=== PATIENT | female | born 1945 | race Caucasian/White ===

== ENCOUNTER 2016-07-17 18:53 | Emergency (ER) | payer MEDICARE ==
--- NOTE | 2016-07-17 19:09 | Emergency Department Record ---
History of Present Illness - General Chief Complaint: Fall Injury Stated Complaint: FALL RIGHT THUMB PAIN Time Seen by Provider: 07/17/16 19:04 Source: Patient Mode of Arrival: Ambulatory Limitations: No limitations - History of Present Illness Initial Comments: 70 yo female presents to ED following a [id number] injury with complaints of pain to the right thumb and to a lesser extent, the right elbow. Patient reports that her sandal caught on the ground resulting in her fall, denies injury to the head or neck. Patient denies numbness, tingling, or weakness to the extremities, denies back pain or injury, and is ambulating well without pain symptoms. 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: Yes, by family Place Fall Occurred: Other Loss of Consciousness: None Prolonged Down Time?: No Symptoms Prior to Fall: None Location - Extremities: Right: Elbow, Hand Severity: Moderate Quality: Aching - More[place] Coma Scale Eye Response: (4) Open spontaneously Motor Response: (6) Obeys commands Verbal Response: (5) Oriented [place] Total: 15 - Related Data Home Medications Medication Instructions Recorded Confirmed Last Taken Amitriptyline HCl 100 mg PO QHS 01/10/14 09/14/14 09/13/14 Bisacodyl [Dulcolax] 10 mg NH NOW 01/10/14 09/14/14 07/06/14 Clonazepam [Clonazepam] 0.5 mg PO QHS PRN 01/10/14 09/14/14 09/13/14 Cyclobenzaprine HCl [Flexeril] 10 mg PO TID 01/10/14 09/14/14 09/14/14 Ergocalciferol (Vitamin D2) 50,000 unit PO ASDIR 01/10/14 09/14/14 07/06/14 [Vitamin D2] Furosemide [Lasix] 20 mg PO ASDIR PRN 01/10/14 09/14/14 09/13/14 Gabapentin [Gabapentin] 300 mg PO BID 01/10/14 09/14/14 09/13/14 Gabapentin [Neurontin] 600 mg PO QHS 01/10/14 09/14/14 09/13/14 Hydroxychloroquine Sulfate 200 mg PO BID 01/10/14 09/14/14 09/14/14 [Plaquenil] Levothyroxine Sodium [Synthroid] 150 mcg PO DAILYTHY 01/10/14 09/14/14 07/06/14 Morphine Sulfate [Morphine Sulfate 60 mg PO BID 01/10/14 09/14/14 09/14/14 ER] Potassium Chloride [K-Tab ER] 10 meq PO ASDIR PRN 01/10/14 09/14/14 09/13/14 Pantoprazole Sodium [Protonix] 20 mg PO DAILY 09/14/14 09/14/14 09/14/14 Previous Rx's Medication Instructions Recorded Fexofenadine/Pseudoephedrine 1 each PO DAILY #30 tab.er.24h 01/10/14 [Lizabeth-D 24 Hour Tablet] Cephalexin [Keflex] 500 mg PO QID #40 cap 09/14/14 Allergies Allergy/AdvReac Type Severity Reaction Status Date / Time levofloxacin [LEVOFLOXACIN] Allergy Intermediate RASH Verified 09/14/14 16:42 Penicillins [PENICILLINS] Allergy Intermediate RASH Verified 09/14/14 16:42 Review of Systems Constitutional: Denies: Chills, Fever, Malaise, Night sweats Eyes: Denies: Eye discharge, Eye pain ENT: Denies: Congestion, Ear pain, Epistaxis Respiratory: Denies: Cough, Dyspnea Cardiovascular: Denies: Chest pain, Dyspnea on exertion Endocrine: Denies: Fatigue, Heat or cold intolerance Gastrointestinal: Denies: Abdominal pain, Nausea, Vomiting Genitourinary: Denies: Incontinence, Retention Musculoskeletal: Reports: Arthralgia. Denies: Back pain, Gout, Joint swelling Skin: Reports: Bruising. Denies: Change in color, Change in hair/nails Neurological: Denies: Abnormal gait, Confusion, Headache, Tingling Psychiatric: Denies: Anxiety Hematological/Lymphatic: Denies: Anemia, Blood Clots Past Medical History - SOCIAL HISTORY Smoking Status: Former smoker - RESPIRATORY Hx Respiratory Disorders: Yes Hx Bronchitis: Yes Hx COPD: Yes Hx Dyspnea: Yes (exertional) Hx Pneumonia: Yes (2012) - CARDIOVASCULAR Hx Cardio Disorders: Yes Hx Abnormal EKG: Yes Hx Cardiac Cath: Yes (11 yrs ago) Hx Edema: Yes (REBEKA LEGS) Hx Palpitations: Yes Comment:: heart cath was 11 years ago; no further treatment - NEURO Hx Neuro Disorders: Yes Hx Dizziness: Yes Hx Neuropathy: Yes (LEGS,FEET) Hx TIA: Yes (2005-no residual weakness) Hx Weakness: Yes (left leg; knee ; gives out alot) Comment:: "nerve damage in back"; "numbness & tingling in legs" - GI Hx GI Disorders: Yes Hx Reflux: Yes - Hx Genitourinary Disorders: Yes Hx Bladder Problem: Yes (bladder sling moved and "ruined bladder"/ pt self caths @ least 2x day) Hx Kidney Stones: Yes (hx of stones) Comment:: self cath prn @ least 2x day - ENDOCRINE Hx Endocrine Disorders: Yes Hx Thyroid Disease: Yes (cancerous thyroid-removed) Comment:: hx of LUPUS - MUSCULOSKELETAL Hx Musculoskeletal Disorders: Yes Hx Arthritis: Yes (hands/back/knees) Comment:: left leg 45% flexibility (3 knee sx) - PSYCH Hx Psych Problems: Yes Hx Anxiety: Yes Hx Depression: Yes - HEMATOLOGY/ONCOLOGY Hx Hematology/Oncology Disorders: Yes Hx Cancer: Yes (thyroid) Hx Chemotherapy: No Hx Radiation Therapy: Yes Hx Blood Transfusions: Yes Family Medical History Hx Cancer: Father, Mother Hx Dementia: Mother Hx Depression: Mother Hx Diabetes: Father, Mother Hx Heart Disease: Father Hx HTN: Father, Mother Physical Exam - General General Appearance: Alert, Oriented x3, Cooperative, Mild distress Limitations: No limitations - Head Head exam: Atraumatic, Normocephalic, Normal inspection Head exam detail: negative: Abrasion, Contusion, Lal's sign, General tenderness, Hematoma, Laceration - Eye Eye exam: Normal appearance. negative: Conjunctival injection, Periorbital swelling, Periorbital tenderness, Scleral icterus - ENT Ear exam: negative: Auricular hematoma, Auricular trauma Nasal Exam: negative: Active bleeding, Discharge, Dried blood, Foreign body, Sinus tenderness Mouth exam: negative: Drooling, Laceration, Muffled voice, Tongue elevation - Neck Neck exam: Normal inspection. negative: Meningismus, Tenderness - Respiratory Respiratory exam: Normal lung sounds bilaterally. negative: Respiratory distress, Rhonchi, Stridor, Wheezes - Cardiovascular Cardiovascular Exam: Regular rate, Normal rhythm, Normal heart sounds - GI/Abdominal GI/Abdominal exam: Soft. negative: Organomegaly, Rebound, Rigid, Tenderness - Rectal Rectal exam: Deferred - exam: Deferred - Extremities Extremities exam: Tenderness, Other (TTP over the base of the right thumb, no evidence for dislocation, no STS, ROM limited by pain. There is ecchmosis over the right elbow on examination, FROM of the elbow.). negative: Calf tenderness , Pedal edema - Back Back exam: Denies: CVA tenderness (R), CVA tenderness (L) - Neurological Neurological exam: Alert, Normal gait, Oriented X3 - Psychiatric Psychiatric exam: Normal affect, Normal mood - Skin Skin exam: Normal color. negative: Abrasion Type of lesion: negative: abrasion Course - Reevaluation(s) Reevaluation #1: 07/17/16 19:53 Right thumb: Degenerative changes, no acute fracture identified Right elbow: Degenerative changes, no acute fracture identified. Patient was updated on radiology results, reports increased ROM of the thumb on re-examination, and appears stable for discharge with instructions for symptomatic care alone. Patient appears stable for discharge at this time. Disposition Disposition: Discharge Clinical Impression: Contusion of right thumb Qualifiers: Encounter type: initial encounter Damage to nail status: without damage Qualified Code(s): S60.011A - Contusion of right thumb without damage to nail, initial encounter Disposition: Home, Self-Care Condition: (2) Stable Instructions: Contusion in Adults (ED) Additional Instructions: Return to ED if your symptoms worsen or if you have any concerns. Follow-up with your family doctor in 3-5 days as directed. Forms: Patient Portal Access Time of Disposition: 19:54
--- NOTE | 2016-07-19 09:52 | RADIOLOGY REPORT ---
EXAM: RIGHT ELBOW HISTORY: PATIENT FELL WITH PAIN IN THE RIGHT ELBOW. TECHNIQUE: Three views of the right elbow were obtained. Comparison: None. Encounter: Initial. FINDINGS: The right elbow appears intact with no definite fracture, dislocation , or joint effusion identified. Minor degenerative arthritis at the right elbow. IMPRESSION: 1. MINOR DEGENERATIVE ARTHRITIS. 2. NO DEFINITE FRACTURE OR JOINT EFFUSION EVIDENT AT THE RIGHT ELBOW. JOB NUMBER: [id number] MTDD
--- NOTE | 2016-07-19 09:55 | RADIOLOGY REPORT ---
EXAM: RIGHT THUMB HISTORY: PATIENT FELL WITH INJURY TO THE RIGHT THUMB. TECHNIQUE: Three views of the right thumb were obtained. Comparison: None. Encounter: Initial. FINDINGS: There appears to be advanced arthritic change at the first CMC articulation and probably some postop change in this region as well. Mild degenerative arthritis at the IP joint of the thumb and first MCP joint. No definite acute fracture or dislocation of the right thumb identified. IMPRESSION: 1. NO FRACTURE OF THE RIGHT THUMB IDENTIFIED. 2. DEGENERATIVE CHANGE INVOLVING THE RIGHT THUMB. POSTOP CHANGE NEAR THE FIRST CMC ARTICULATION WELL. JOB NUMBER: [id number] MTDD
== END 2016-07-17 20:02 | disposition home or self-care (01) ==
LOC: ER 18:53
DX: S60.011A Contusion of right thumb without damage to nail, initial encounter (principal); M25.521 Pain in right elbow; W01.0XXA Fall on same level from slipping, tripping and stumbling without subsequent striking against object, initial encounter
CPT/HCPCS: 99283

== ENCOUNTER 2018-05-30 09:10 | Day surgery (SDC) | payer MEDICARE ==
--- NOTE | 2018-05-30 06:42 | History and Physical - [place] ---
CHIEF COMPLAINT/HISTORY OF CHIEF COMPLAINT: This patient presents with a history of an intractable lumbar radiculopathy. A spinal cord stimulator trial was conducted and implanted initially in 2010, and it was revised in 2013. Although initially quite successful in controlling pain over time the system has essentially become nonfunctional. She is here for removal of generator and leads. PAST MEDICAL HISTORY: Chronic bladder infections and degenerative arthritis. PAST SURGICAL HISTORY: Hysterectomy, gallbladder surgery, renal surgery, thyroid surgery, bariatric surgery, stimulator implant, and pump implant. MEDICATIONS ON ADMISSION: List to be provided. ALLERGIES: None. SYSTEMS REVIEW: The patient seems appropriate in no acute distress. The remainder of the systems review is as per above. PHYSICAL EXAMINATION: Height is 5'3", weight is 200 pounds. No vital signs. HEENT: Within normal limits. LUNGS: Clear. HEART: Rapid and regular. ABDOMEN: Nontender. MUSCULOSKELETAL: Examination of the musculoskeletal system shows the incisional sites for the generator and spinal cord stimulator to be intact. There is no breakdown or cellulitis. The underlying pain pattern is low back and bilateral legs. NEUROLOGIC: Cranial nerves are intact. Mild motor and sensory abnormalities to the lower extremities bilaterally. IMPRESSION: 1. INTRACTABLE LUMBAR RADICULOPATHY, ICD-10 CODE M54.16 AND M54.17. 2. SPINAL CORD STIMULATOR AND INTERNAL GENERATOR NONFUNCTIONAL. PLAN: The patient is here for removal of a nonfunctional spinal cord stimulator system and internal generator. The incisions for the leads are located at the midline at T11-T12 and T12-L1 as well as the generator pouch at the right posterior gluteal margin. JOB NUMBER: [id number] MTDD
[~2018-05-30 09:10] MED LIST: ACETAMINOPHEN 1,000 MG/100 ML BTL IV ONE; FAMOTIDINE 20MG TABLET PO ONE; MECLIZINE 25 MG TABLET PO ONE; METOCLOPRAMIDE 10 MG TABLET PO ONE; VANCOMYCIN HCL 1,000 MG in DEXTROSE 5 % IN WATER 250 ML IVPB ONE
[2018-05-30] MEDS ORDERED: LIDOCAINE 1% W/EPI 1:200,000 MPF 30ML SQ ONE (09:11)
[2018-05-30] MEDS ORDERED: LIDOCAINE 2% MDV (20MG/ML) 20ML VIAL IV ONE (09:11)
[2018-05-30] MEDS ORDERED: MIDAZOLAM HCL 2MG/2ML VIAL IV ONE (09:11)
[2018-05-30] MEDS ORDERED: PROPOFOL 10 MG/ML VIAL IV ONE (09:11)
[2018-05-30] MEDS ORDERED: BUPIVACAINE 0.5% W/EPI MPF 30 ML VIAL IVP ONE (09:11)
[2018-05-30] MEDS ORDERED: Clindamycin 600mg vial 150 MG/ML VIAL IVPB ONE (09:11)
[2018-05-30] MEDS ORDERED: FENTANYL PF 100MCG/2ML VIAL IV ONE (09:11)
[2018-05-30] MEDS ORDERED: RINGERS SOLUTION,LACTATED 1,000 ML IV ONE (10:05)
[2018-05-30] MEDS ORDERED: LIDOCAINE 1% W/EPI 1:100,000 MDV 20 ML VIAL SQ ONE ×2 (11:24)
[2018-05-30] MEDS ORDERED: BUPIVACAINE 0.5% W/EPI MPF 30 ML VIAL SQ ONE ×2 (11:24)
[2018-05-30] MEDS ORDERED: RINGERS SOLUTION,LACTATED 500 ML IV ONE (12:11)
[2018-05-30] MEDS ORDERED: OXYCODONE/APAP 10MG-325MG TABLET PO ONE (12:36)
--- NOTE | 2018-05-31 11:30 | Operative Note ---
DATE OF SURGERY: 05/30/2018 PREOPERATIVE DIAGNOSES: 1. Intractable lumbar radiculopathy ICD-10 code implant 4.16 and implant 4.17. 2. Two-lead spinal cord stimulator internal generator nonfunctional. POSTOPERATIVE DIAGNOSES: 1. Intractable lumbar radiculopathy ICD-10 code implant 4.16 and implant 4.17. 2. Two-lead spinal cord stimulator internal generator nonfunctional. OPERATION: 1. Incision, sub dissection removal of internal pulse generator right posterior gluteal margin. 2. Incision, sub dissection removal of 2 spinal cord stimulators. 3. Removal of previous interface connector between generator and stimulators placed during revision. SURGEON: Markie Mac D.O. ANESTHESIA: Local anesthesia. ANESTHESIA PROVIDER: BRENNEN Roper CRNA INDICATION: This patient presents with a history of intractable lumbar radiculopathy. 2012 spinal cord stimulator was implanted, 2-tableau lead. This generator was revised with a positioning 2015, moving the generator up at that time, the interface connectors between the generator and the leads were kept in the original pouch recorder. The system is nonfunctional. She is here by her request for removal of the system. PROCEDURE: Intravenous line, vital sign monitoring, intravenous sedation by anesthesia provider BRENNEN. The patient was positioned prone, sterile prep, sterile technique. Under imaging, the generator of the right posterior gluteal margin was identified, skin infiltrated. Incision was made sub dissection was conducted to the pouch. The generator was then exteriorized. The interface connectors between the leads and the generator from the previous pouch were infiltrated. The skin infiltrated with local anesthetic, incision made and sub dissection was conducted to the previous pouch. The connectors were then removed intact. At the midline, T12-L1 skin infiltrated, incision made subcutaneous dissection was conducted to the 2-leads anchor. The loose sutures were removed, the anchors removed, and the 2 16 electrode leads were removed intact. The placement of these leads was intimately associated with a spinal catheter placement and anchor. The suture around the spinal catheter anchor had to be removed for the leads to be removed. Antibiotic irrigation and Bovie for hemostasis at all 3 incisional sites. The leads, connectors, and generator removed intact. Each of the 3 incisions was then closed using Stratafix 2-0 fascia, 3-0 skin. Dermabond closure over each of the 3 wounds. The spinal catheter had been re-anchored down to the deep fascia to assure appropriate anchoring. She was transported to the recovery room in stable and satisfactory condition from the procedure today. She will be monitored until stable and then prepared for discharge. DISCHARGE INSTRUCTIONS: 1. The sites remain clean and dry. Dermabond will allow showering, but no sitting in water or tubs. 2. Standard medications resumed. Because of allergies, the appropriate antibiotic was found, selected, and called to her pharmacy. 3. She will be contacted by the office at home, set up an appointment in the next 10 days to evaluate the sites. Until then, she is to keep her activities controlled. Limit bend, lift, push, and pull. 4. All other instructions provided, number to contact if problems given. She was then discharged. CC: Dr. Gal GUERRERO
== END 2018-05-30 12:53 | disposition home or self-care (01) ==
LOC: SUR 09:10
PROVIDERS: ATTEND Pain Medicine Interventional Pain Medicine
DX: M54.16 Radiculopathy, lumbar region (principal); M54.17 Radiculopathy, lumbosacral region; J44.9 Chronic obstructive pulmonary disease, unspecified; R06.00 Dyspnea, unspecified; M32.9 Systemic lupus erythematosus, unspecified; Z98.61 Coronary angioplasty status; M06.9 Rheumatoid arthritis, unspecified; Z86.73 Personal history of transient ischemic attack (TIA), and cerebral infarction without residual deficits; G25.81 Restless legs syndrome
CPT/HCPCS: 63661; 63688; 01936; J3370; J3010; J7060; J7120

== ENCOUNTER 2019-02-15 10:58 | Emergency (ER) | payer MEDICARE ==
--- NOTE | 2019-02-15 11:36 | Emergency Department Record ---
History of Present Illness - General Chief complaint: Extremity Problem Stated complaint: RIGHT ARM PAIN Time Seen by Provider: 02/15/19 11:09 Source: Patient Mode of Arrival: Ambulatory Limitations: No limitations - History of Present Illness Initial comments: pt moved furniture yesterday and now has pain in her r thoracic and shoulder area Complaint: Extremity pain, Other Onset/Timin -: Days(s) Location: Right, Arm History of Same: No Radiation: Proximal Severity scale (1-10): 8 Quality: Aching Consistency: Constant Improves with: Nothing Worsens with: Exertion, Weight bearing Associated Symptoms: Denies other symptoms - Related Data Home Medications Medication Instructions Recorded Confirmed Last Taken Oxycodone HCl/Acetaminophen 1 tab PO Q6H PRN 02/15/19 02/15/19 Unknown [Percocet 10mg/325mg] Ropinirole HCl [Requip] 0.5 mg PO QHS 02/15/19 02/15/19 Unknown Previous Rx's Medication Instructions Recorded Ibuprofen [Motrin 400Mg] 400 mg PO Q6H PRN #20 tablet 02/15/19 Allergies Allergy/AdvReac Type Severity Reaction Status Date / Time levofloxacin [LEVOFLOXACIN] Allergy Intermediate RASH Verified 09/14/14 16:42 Penicillins [PENICILLINS] Allergy Intermediate RASH Verified 09/14/14 16:42 Travel Screening - Travel/Exposure Within Last 30 Days Have you traveled within the last 30 days?: No Review of Systems Reviewed: No additional complaints except as noted below Constitutional: Reports: As per HPI. Denies: Chills, Fever, Malaise, Night sweats, Weakness, Weight change Eyes: Reports: As per HPI. Denies: Eye discharge, Eye pain, Photophobia, Vision change ENT: Reports: As per HPI. Denies: Congestion, Dental pain, Ear pain, Epistaxis, Hearing loss, Throat pain Respiratory: Reports: As per HPI. Denies: Cough, Dyspnea, Hemoptysis, Stridor, Wheezes Cardiovascular: Reports: As per HPI. Denies: Arrhythmia, Chest pain, Dyspnea on exertion, Edema, Murmurs, Orthopnea, Palpitations, Paroxysmal nocturnal dyspnea, Rheumatic Fever, Syncope Endocrine: Reports: As per HPI. Denies: Fatigue, Heat or cold intolerance, Polydipsia, Polyuria Gastrointestinal: Reports: As per HPI. Denies: Abdominal pain, Constipation, D iarrhea, Hematemesis, Hematochezia, Melena, Nausea, Vomiting Genitourinary: Reports: As per HPI. Denies: Abnormal menses, Discharge, Dyspareunia, Dysuria, Frequency, Hematuria, Incontinence, Retention, Urgency Musculoskeletal: Reports: As per HPI. Denies: Arthralgia, Back pain, Gout, Joint swelling, Myalgia, Neck pain Skin: Reports: As per HPI. Denies: Bruising, Change in color, Change in hair/nails, Lesions, Pruritus, Rash Neurological: Reports: As per HPI. Denies: Abnormal gait, Confusion, Headache, Numbness, Paresthesias, Seizure, Tingling, Tremors, Vertigo, Weakness Psychiatric: Reports: As per HPI. Denies: Anxiety, Auditory hallucinations, Depression, Homicidal thoughts, Suicidal thoughts, Visual hallucinations Hematological/Lymphatic: Reports: As per HPI. Denies: Anemia, Blood Clots, Easy bleeding, Easy bruising, Swollen glands Past Medical History - SOCIAL HISTORY Smoking Status: Former smoker - RESPIRATORY Hx Respiratory Disorders: Yes Hx Bronchitis: Yes (not recent) Hx COPD: Yes Hx Dyspnea: Yes (exertional) Hx Pneumonia: Yes (2012) - CARDIOVASCULAR Hx Cardio Disorders: Yes Hx Abnormal EKG: Yes Hx Cardiac Cath: Yes (11 yrs ago) Hx Deep Vein Thrombosis: No Hx Edema: Yes (left leg-on Lasix 2xd) Hx Palpitations: No Comment:: heart cath was 11 years ago; no further treatment - NEURO Hx Neuro Disorders: Yes Hx Dementia: Yes Hx Dizziness: Yes (head spins sometimes-balance issues) Hx Neuropathy: Yes (LEGS,FEET) Hx TIA: Yes (2004-no residual weakness) Hx Weakness: Yes (left leg; knee ; gives out alot) Comment:: "nerve damage in back"; "numbness & tingling in legs" - GI Hx GI Disorders: Yes Hx Reflux: Yes Hx Wt Loss/Wt Gain: Yes (wt loss from 179 1 week ago) Comment:: lactose intolerant - Hx Genitourinary Disorders: Yes Hx Bladder Problem: Yes (bladder sling moved and "ruined bladder"/ pt self caths @ least 2x day) Hx Kidney Stones: Yes (hx of stones) Comment:: self caths up to 7 x day - ENDOCRINE Hx Endocrine Disorders: Yes Hx Thyroid Disease: Yes (cancerous thyroid-removed) Comment:: hx of LUPUS - MUSCULOSKELETAL Hx Musculoskeletal Disorders: Yes Hx Arthritis: Yes (hands/back/knees) Hx Back Injury: Yes (fallen "not too long ago"-Dr Mac helped with injections) Comment:: left leg 45% flexibility (3 knee sx) - PSYCH Hx Psych Problems: Yes Hx Anxiety: Yes (anxiety attacks) Hx Depression: Yes - HEMATOLOGY/ONCOLOGY Hx Hematology/Oncology Disorders: Yes Hx Anemia: Yes (gets infusion Rx periodically) Hx Cancer: Yes (thyroid) Hx Chemotherapy: No Hx Radiation Therapy: Yes Hx Blood Transfusions: Yes Family Medical History Any Significant Family History?: Yes Hx Cancer: Father, Mother Hx Dementia: Mother Hx Depression: Mother Hx Diabetes: Father, Mother Hx Heart Disease: Father Hx HTN: Father, Mother Physical Exam - General General Appearance: Alert, Oriented x3, Cooperative, Mild distress - Head Head exam: Normal inspection - Eye Eye exam: Normal appearance, PERRL, EOMI Pupils: Normal accommodation - ENT ENT exam: Normal exam, Mucous membranes moist, Normal external ear exam, Normal orophraynx Ear exam: Normal external inspection. negative: External canal tenderness Nasal Exam: Normal inspection. negative: Discharge, Sinus tenderness Mouth exam: Normal external inspection, Tongue normal Teeth exam: Normal inspection. negative: Dental caries Throat exam: Normal inspection. negative: Tonsillar erythema, Tonsillar exudate - Neck Neck exam: Normal inspection, Full ROM. negative: Tenderness - Respiratory Respiratory exam: Normal lung sounds bilaterally. negative: Respiratory distress - Cardiovascular Cardiovascular Exam: Regular rate, Normal rhythm, Normal heart sounds - GI/Abdominal GI/Abdominal exam: Soft, Normal bowel sounds. negative: Tenderness - Rectal Rectal exam: Deferred - exam: Deferred - Extremities Extremities exam: Normal inspection, Full ROM, Normal capillary refill. negative: Tenderness - Back Back exam: Reports: Full ROM, Muscle spasm, Tenderness. Denies: Rash noted Image of Body Front/Back: 1 - reproducible tenderness - Neurological Neurological exam: Alert, CN II-XII intact, Normal gait, Oriented X3 - Psychiatric Psychiatric exam: Normal affect, Normal mood - Skin Skin exam: Dry, Intact, Normal color, Warm Course Vital Signs 02/15/19 11:06 Temperature 97.8 F Pulse Rate 89 Respiratory 20 Rate Blood Pressure 124/78 Pulse Ox 100 - Reevaluation(s) Reevaluation #1: 02/15/19 13:31 xrays are neg for acute findings Medical Decision Making - Lab Data Result diagrams: 02/15/19 11:35 02/15/19 11:35 Disposition Disposition: Discharge Clinical Impression: Acute thoracic myofascial strain Qualifiers: Encounter type: initial encounter Qualified Code(s): S29.019A - Strain of muscle and tendon of unspecified wall of thorax, initial encounter Disposition: Home, Self-Care Condition: (1) Good Instructions: Thoracic Back Strain (ED) Additional Instructions: follow up with family doctor this week. return sooner if worse. apply ice to sore area rotating with moist heat Prescriptions: Ibuprofen [Motrin 400Mg] 400 mg PO Q6H PRN #20 tablet PRN Reason: Pain - Mod To Severe (5-10) Forms: Patient Portal Access Quality - Quality Measures Quality Measures: N/A - Blood Pressure Screening Does Patient Have Any of the Following: No Blood Pressure Classification: Pre-Hypertensive BP Reading Systolic Measurement: 124 Diastolic Measurement: 78 Screening for High Blood Pressure: < Pre-Hypertensive BP, F/U Documented > [G8950] Pre-Hypertensive Follow-up Interventions: Follow-up with rescreen every year.
[2019-02-15 11:40] LABS: BASO % 0.6 % (0-6); EOS % 5.2 % (0-6); GRAN % 69.5 % (47-80); HEMATOCRIT 32.6 % (35.0-47.0); HEMOGLOBIN 9.5 gm/dl (11.6-16.0); LYMPH % 15.7 % (16-45); MEAN CELL VOLUME 98.8 fl (81-97); MEAN CORPUSCULAR HGB CONC 29.1 g/dl (32-36); PLATELET COUNT 112 K/uL (130-400); RED CELL DISTRIBUTION WIDTH 13.9 % (11.5-14.5); WHITE BLOOD COUNT W/O DIFF 3.5 K/uL (4.2-12.2)
[2019-02-15 11:43] LABS: MEAN CORPUSCULAR HEMOGLOBIN 28.7 pg (27-33)
[2019-02-15 11:50] LABS: BLOOD UREA NITROGEN 16 mg/dL (8-23); CREATININE 0.7 mg/dL (0.5-0.9); EST GLOMERULAR FILTRATION RATE > 60 mL/min
[2019-02-15 11:53] LABS: GLUCOSE,RANDOM 130 mg/dL (74-109)
[2019-02-15] MEDS ORDERED: KETOROLAC 30 MG/ML VIAL IM ONE (12:14)
--- NOTE | 2019-02-15 12:44 | RADIOLOGY REPORT ---
EXAMINATION: CERVICAL SPINE AP LATERAL, THORACIC SPINE EXAM DATE: 02/15/2019 12:20 PM TECHNIQUE: AP, lateral odontoid and swimmer's views of the cervical spine. AP, lateral and swimmer's views of the thoracic spine. INDICATION: Pain COMPARISON: Thoracolumbar radiographs 11/04 2015, CT chest 08/18/2011. ENCOUNTER: Initial FINDINGS: In the lateral projection, the cervical spine is seen from craniocervical junction to the C7-T1 level . Mild levoconvex curvature of the thoracocervical junction mild dextroconvex curvature of the lumbos acral junction. Cervical lordosis and facet alignment are preserved. Mild grade 1 anterolisthesis of C7 over T1. Base of the dens is intact. Lateral masses of C1 and C2 are well aligned. Mildly accelera leida thoracic kyphosis. Cervical and thoracic vertebral body heights are preserved. No convincing cervical or thoracic spine fracture to the limits of technique and osseous demineraliza tion. No prevertebral soft tissue swelling. Moderate degenerative changes at C4-C5, C5-C6 and C6-C7. Flowing ventral endplate osteophytes in the midthoracic spine. Advanced degenerative changes at L1-L2. IMPRESSION: No convincing cervical or thoracic spine fracture to the limits of technique and osseous demineraliza tion. Dictated by: Alyx Gregory MD on 02/15/2019 12:38 PM. .
--- NOTE | 2019-02-15 13:03 | RADIOLOGY REPORT ---
EXAMINATION: Right Shoulder, Complete Minimum Two Views EXAM DATE: 02/15/2019 12:20 PM TECHNIQUE: AP, Grashey, and axillary INDICATION: Right shoulder pain COMPARISON: None ENCOUNTER: Initial FINDINGS: Moderate diffuse osteopenia. No fracture or dislocation. IMPRESSION: Diffuse osteopenia. Dictated by: Benedicto Hooper DO on 02/15/2019 1:00 PM. .
== END 2019-02-15 13:44 | disposition home or self-care (01) ==
LOC: ER 10:58
DX: S29.019A Strain of muscle and tendon of unspecified wall of thorax, initial encounter (principal); M25.511 Pain in right shoulder; M79.621 Pain in right upper arm; X50.0XXA Overexertion from strenuous movement or load, initial encounter; Z87.891 Personal history of nicotine dependence
CPT/HCPCS: 99284 ×2; 96372; 85025; 80048; 72040; 73030; 72072; J1885